=== PATIENT | female | born 1990 | race Caucasian/White ===

== ENCOUNTER 2019-06-16 11:48 | Inpatient (IN) | payer BC ==
[~2019-06-16 11:48] MED LIST: Bupivacaine 0.25% 10 ML SDV ONE
[2019-06-16] MEDS ORDERED: Nalbuphine 10 MG/1 ML Vial IVPUSH PRN (12:49)
[2019-06-16] MEDS ORDERED: Sodium Chloride 0.9% 10 ML Syringe FLUSH PRN (12:49)
[2019-06-16] MEDS ORDERED: Ondansetron 4 MG/2 ML SDV IVPUSH PRN (12:55)
[2019-06-16] MEDS ORDERED: Oxytocin/Lactated Ringers 10 UNIT/1,000 ML BAG IV SCH ×2 (13:00)
--- NOTE | 2019-06-16 13:27 | PCM.PREANE ---
Preanesthetic Assessment - Procedure Proposed Procedure: AMARI - Anesthesia/Transfusion/Family Hx Anesthesia History: Prior Anesthesia Without Reaction Family History of Anesthesia Reaction: No Transfusion History: No Prior Transfusion(s) Type of Transfusion Reactions: Reports: Unknown - Review of Systems General: No Symptoms Pulmonary: No Symptoms Cardiovascular: No Symptoms Gastrointestinal: No Symptoms Neurological: No Symptoms Other: Reports: None - Physical Assessment Vital Signs: 99% 16 73 117/71 Height: 5 ft 10 in Weight: 87.09 kg ASA Class: 2 Mental Status: Alert & Oriented x3 Airway Class: Mallampati = 1 Dentition: Reports: Normal Dentition Thyro-Mental Finger Breadths: 3 Mouth Opening Finger Breadths: 3 ROM/Head Extension: Full Lungs: Clear to Auscultation, Normal Respiratory Effort Cardiovascular: Regular Rate, Regular Rhythm - Allergies Allergies/Adverse Reactions: Allergies Allergy/AdvReac Type Severity Reaction Status Date / Time Penicillins Allergy Hives Verified 04/29/16 18:20 - Blood Blood Available: No - Acknowledgements Anesthesia Type Planned: Epidural Pt an Appropriate Candidate for the Planned Anesthesia: Yes Alternatives and Risks of Anesthesia Discussed w Pt/Guardian: Yes Pt/Guardian Understands and Agrees with Anesthesia Plan: Yes PreAnesthesia Questionnaire Cardiovascular History: Reports: None Respiratory History: Reports: None Gastrointestinal History: Reports: GERD 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: : 2 (40 WEEKS) Para: 1 - Past Surgical History HEENT Surgical History: Reports: Oral Surgery, Other (See Below) Female Surgical History: Reports: Other (See Below) (lipoma armpit) Oncologic Surgical History: Reports: Other (See Below) - History Comment History Comment: bonifacioyrtec for home meds - SUBSTANCE USE Smoking Status *Q: Never Smoker Tobacco Use Within Last Twelve Months: No Second Hand Smoke Exposure: No Days Per Week of Alcohol Use: 0 Recreational Drug Use History: No - HOME MEDS Home Medications: Home Meds Benzocaine/Menthol [Dermoplast Pain Relief [place]] 1 applic TOP ASDIRECTED PRN # 30 canister 05/02/16 [Rx] Docusate Sodium [Colace] 100 mg PO BID PRN #30 cap 05/02/16 [Rx] Ibuprofen [IJD: Ibuprofen] 600 mg PO Q4H PRN #30 tablet 05/02/16 [Rx] Vit with Ca/FA/Iron [ Plus Iron] 1 each PO DAILY tablet [Rx] Vikas Longo [Tucks] 1 pad TOP ASDIRECTED PRN #30 pad 05/02/16 [Rx] - CURRENT (IN HOUSE) MEDS Current Meds: Current Medications Lactated Ringer's (Ringers, Lactated) 1,000 mls @ 100 mls/hr IV ASDIRECTED ROBERT Oxytocin/Lactated Ringer's (Pitocin In Lr 10 Units/1,000 Ml) 10 unit in 1,000 mls @ 12 mls/hr IV TITRATE ROBERT; Protocol Oxytocin/Lactated Ringer's (Pitocin In Lr 10 Units/1,000 Ml) 10 unit in 1,000 mls @ 500 mls/hr IV .CONTINUOUS ROBERT Nalbuphine HCl (Nubain) 10 mg IVPUSH Q2H PRN PRN Reason: Pain Ondansetron HCl (Zofran) 4 mg IVPUSH Q4H PRN PRN Reason: Nausea/Vomiting Sodium Chloride (Saline Flush) 10 ml FLUSH ASDIRECTED PRN PRN Reason: Keep Vein Open
[2019-06-16] MEDS ORDERED: diphenhydrAMINE 50 MG/ML SDV IVPUSH PRN (13:28)
[2019-06-16] MEDS ORDERED: fentaNYL 100 MCG/2 ML SDV EPIDUR PRN (13:28)
[2019-06-16] MEDS ORDERED: Bupivacaine/fentaNYL/NS 100 ML Bag EPIDUR PRN (13:28)
[2019-06-16] MEDS ORDERED: ePHEDrine 50 MG/ML SDV IVPUSH PRN (13:28)
[2019-06-16] MEDS: Lactated Ringers 1,000 ML IV SCH ×3 (13:32→17:54)
--- NOTE | 2019-06-16 15:35 | PCM.LDHP ---
L&D History of Present Illness - General Date of Service: 06/16/19 Admit Problem/Dx: Patient Status Order with Admit Dx/Problem 06/16/19 12:59 Patient Status [ADT] Routine Admission Diagnosis/Problem Admission Diagnosis/Problem 06/16/19 15:25 Jaylin is a 28-year-old 2 para 1001 white female admitted for induction of labor on 06/16/2019 at 40-1/7 weeks gestational age with an CELESTINO of 06/15/2019. Source of Information: Patient History Limitations: Reports: No Limitations - History of Present Illness Introduction:: Jaylin is a 28-year-old 2 para 1001 white female admitted for induction of labor on 06/16/2019 at 40-1/7 weeks gestational age with an CELESTINO of 06/15/2019. Patient's EDC is based upon a certain last menstrual periods starting 2017 and supported by at least 5 ultrasounds done during the course of the . The procedure of induction of labor, its risks, benefits, alternatives of care including long for natural onset of labor DISCUSSED with patient. She appears understand and wishes to proceed. SUPERINTENDENT DISTRIBUTION history: 2 para 1001. CELESTINO 06/15/2019 by LMP 09/08/2018 supported by multiple ultrasounds. Patient had menarche at age 11. Cycles every 30 days. No control at time of conception. Positive hCG is on 10/07/2018. Previous delivery included the followin. Male born 04/30/2018 at 37 weeks gestational age after 28 hours of labor. 6 lbs. 13 oz. named Abraham course: Patient is a centering patient. Her [place] depression screening score on 02/16/2019 was 2/30. She is interested in epidural in labor and delivery. Group B strep screen is negative. Patient had normal 1 hour GTT documented on 04/07/2019. She declined genetic evaluation. She plans to bottlefeed. She has had a history of upper respiratory infection and UTI during the course of the . course: Patient was first seen care on 11/26/2018 at which time an initial ultrasound confirmed her dates. She was seen on a very regular basis throughout the . She is centering patient. Weight gain was from 160 191 pounds. Fundal height growth was appropriate. Her vital signs remained stable throughout the course. On last evaluation clinic her cervix was 3 cm dilated, 90% effaced, soft, midposition, -3 station. laboratory testing has included first laboratory tests showing blood to be B- with negative antibody screen. Hemoglobin was 13.9 g/dL. Platelets are 257,000. She is rubella immune. RPR is nonreactive. Hepatitis B surface antigen test was negative as was HIV assay. Her chlamydia and gonorrhea tests were both negative. Second trimester labs showed hemoglobin 12.5 g/dL. Platelets are 239,000. One-hour GTT was normal at 90. Group B strep screen was negative. Second trimester RPR done 04/06/2019 was nonreactive. Allergies: 1. Penicillinscauses hives 2. Seasonal allergies are noted. Medications: 1. Azithromycin 250 mg by mouth daily 2. Calcium 500 mg2 tabs daily 3. vitamins 1 daily 4. Zyrtec allergy 1 Capsule Daily Past Medical History: 1. History of UTI. 2. History of Vaginal Delivery 1 As Listed above. 3. Seasonal Allergies Past Surgical History: 1. Oral Surgery 2007 2. Fatty Tumor Removed from Right Arm 2014. Family History: Mother Is Alive and Well. Father Is Alive and in Good Health. One Brother Alive and Well. Maternal Grandmother Secondary from Old Age. Has History of Breast Cancer. Paternal Grandfather Secondary to Kidney Disease. Paternal Grandmother Is Alive with History of Breast Cancer. Paternal Grandfather with a History of an ME. No Bleeding, Anesthesia, Clotting , Problems Noted in the Family. Paternal Grandmother Is a Twin. First Cousin Has Set of Twins. One Cousins Are Twins. Social History: Patient Is . She Lives in [place], [place]. She Is a College Graduate. She Works [employer]. She does not use any significant loss of alcohol, drugs or tobacco. Review of systems: In general patient has no complaints. Baby has been active. Some contractions have been noted. Skin: Negative Lungs: No infectious symptoms or shortness of breath Cardiovascular: No chest pain or exercise intolerance Breasts: Changes associated with only. Patient plans to bottlefeed. GI: Negative : Changes associated with . Musculoskeletal: Negative Neurological: Negative In general the patient is well-developed, well-nourished, pleasant female of stated age in no acute distress. Skin is warm dry without lesions. HEENT, neck and back within normal limits. Lungs are clear with good breath sounds in all lung siddiqi. Cardiovascular exam shows regular and rhythm without murmurs. Breasts exam is deferred having been done at first visit and found to be normal. Abdomen is gravid with last fundal height at 39 cm. Baby in vertex presentation. Genital exam per digital exam shows cervix to be 4 cm, 80% effaced, soft, somewhat posterior, -1 station, cephalic presentation. Artificial rupture membranes is undertaken. Small amount of clear amniotic fluid is noted. Extremities and neurological exam are grossly within normal limits. - Related Data Allergies/Adverse Reactions: Allergies Allergy/AdvReac Type Severity Reaction Status Date / Time Penicillins Allergy Hives Verified 04/29/16 18:20 Home Medications: Home Meds Benzocaine/Menthol [Dermoplast Pain Relief [place]] 1 applic TOP ASDIRECTED PRN # 30 canister 05/02/16 [Rx] Docusate Sodium [Colace] 100 mg PO BID PRN #30 cap 05/02/16 [Rx] Ibuprofen [IJD: Ibuprofen] 600 mg PO Q4H PRN #30 tablet 05/02/16 [Rx] Vit with Ca/FA/Iron [ Plus Iron] 1 each PO DAILY tablet [Rx] Witch Qing [Tucks] 1 pad TOP ASDIRECTED PRN #30 pad 05/02/16 [Rx] Past Medical History - Past Health History Medical/Surgical History: Denies Medical/Surgical History Cardiovascular History: Reports: None Respiratory History: Reports: None Gastrointestinal History: Reports: GERD SUPERINTENDENT DISTRIBUTION History: Reports: - Past Surgical History HEENT Surgical History: Reports: Oral Surgery, Other (See Below) Female Surgical History: Reports: Other (See Below) (lipoma armpit) Oncologic Surgical History: Reports: Other (See Below) - History Comment History Comment: zyrtec for home meds Social & Family History - Family History Family Medical History: Noncontributory - Tobacco Use Smoking Status *Q: Never Smoker Second Hand Smoke Exposure: No - Caffeine Use Caffeine Use: Reports: None - Alcohol Use Days Per Week of Alcohol Use: 0 - Recreational Drug Use Recreational Drug Use: No H&P Review of Systems - Review of Systems: Review Of Systems: See Below L&D Exam - Exam Exam: See Below - Vital Signs Weight: 87.09 kg - Patient Data Lab Results Last 24 hrs: Laboratory Results - last 24 hr 06/16/19 Range/Units 13:20 WBC 8.31 (3.98-10.04) K/mm3 RBC 4.45 (3.98-5.22) M/mm3 Hgb 12.7 (11.2-15.7) gm/L Hct 37.9 (34.1-44.9) % MCV 85.2 (79.4-94.8) fl MCH 28.5 (25.6-32.2) pg MCHC 33.5 (32.2-35.5) g/dl RDW Std Deviation 40.1 (36.4-46.3) fL Plt Count 206 (182-369) K/mm3 MPV 11.5 (9.4-12.3) fl Neut % (Auto) 62.0 (34.0-71.1) % Lymph % (Auto) 25.5 (19.3-51.7) % Pepin % (Auto) 9.1 (4.7-12.5) % Eos % (Auto) 2.4 (0.7-5.8) Baso % (Auto) 0.6 (0.1-1.2) % Neut # (Auto) 5.15 (1.56-6.13) K/mm3 Lymph # (Auto) 2.12 (1.18-3.74) K/mm3 Pepin # (Auto) 0.76 H (0.24-0.36) K/mm3 Eos # (Auto) 0.20 (0.04-0.36) K/mm3 Baso # (Auto) 0.05 (0.01-0.08) K/mm3 Result Diagrams: 06/16/19 13:20 Problem List Initiated/Reviewed/Updated: Yes Orders Last 24hrs: Active Orders 24 hr Category Date Time Status Patient Status [ADT] Routine ADT 06/16/19 12:59 Active Activity as Tolerated [RC] PFP Care 06/16/19 12:50 Active Communication Order [RC] ASDIRECTED Care 06/16/19 12:50 Active Heart Tones [RC] ASDIRECTED Care 06/16/19 12:50 Active Non Stress Test [RC] PER UNIT ROUTINE Care 06/16/19 12:50 Active Notify Provider [RC] ASDIRECTED Care 06/16/19 13:28 Active Notify Provider [RC] PFP Care 06/16/19 12:50 Active Notify Provider [RC] PRN Care 06/16/19 12:50 Active Peripheral IV Care [RC] . DIRECTED Care 06/16/19 12:50 Active Pump Management, Intrathecal [RC] ASDIRECTED Care 06/16/19 13:00 Active Urinary Catheter Assessment [RC] ASDIRECTED Care 06/16/19 12:55 Active Vital Signs [RC] PER UNIT ROUTINE Care 06/16/19 12:50 Active Regular Diet [DIET] Diet 06/16/19 Dinner Active RAPID PLASMA REAGIN,RPR [CHEM] Routine Lab 06/16/19 13:20 Received Bupivacaine/fentaNYL/NS [fentaNYL/Bupivacaine/NS 2 MCG- Med 06/16/19 13:28 Active 0.125% 100 ML] 100 ml EPIDUR ASDIRECTED PRN Lactated Ringers [Ringers, Lactated] 1,000 ml Med 06/16/19 13:00 Active IV ASDIRECTED Nalbuphine [Nubain] Med 06/16/19 12:49 Active 10 mg IVPUSH Q2H PRN Ondansetron [Zofran] Med 06/16/19 12:55 Active 4 mg IVPUSH Q4H PRN Oxytocin/Lactated Ringers [Pitocin in LR 10 Units/1,000 Med 06/16/19 13:00 Active ML] 10 unit in 1,000 ml IV .CONTINUOUS Oxytocin/Lactated Ringers [Pitocin in LR 10 Units/1,000 Med 06/16/19 13:00 Active ML] 10 unit in 1,000 ml IV TITRATE Sodium Chloride 0.9% [Saline Flush] Med 06/16/19 12:49 Active 10 ml FLUSH ASDIRECTED PRN diphenhydrAMINE [Benadryl] Med 06/16/19 13:28 Active 25 mg IVPUSH Q6H PRN ePHEDrine [ePHEDrine sulfate] Med 06/16/19 13:28 Active 5 mg IVPUSH ASDIRECTED PRN fentaNYL [Sublimaze] Med 06/16/19 13:28 Active 100 mcg EPIDUR Q3H PRN Electronic Heart Tones Ext w TOCO [WOMSER] Oth 09/11/19 12:50 Ordered Routine Electronic Heart Tones Internal [WOMSER] Per Unit Oth 06/16/19 12:50 Ordered Routine Peripheral IV Insertion Adult [OM.PC] Routine Oth 06/16/19 12:50 Ordered Resuscitation Status Routine Resus Stat 06/16/19 12:49 Ordered Medication Orders Diphenhydramine HCl (Benadryl) 25 mg IVPUSH Q6H PRN PRN Reason: pruritis Stop: 06/16/19 23:00 Ephedrine Sulfate (Ephedrine Sulfate) 5 mg IVPUSH ASDIRECTED PRN PRN Reason: Hypotension Stop: 06/16/19 23:00 Fentanyl (Sublimaze) 100 mcg EPIDUR Q3H PRN PRN Reason: Pain Stop: 06/16/19 23:00 Fentanyl/Bupivacaine HCl (Fentanyl/Bupivacaine/Ns 2 Mcg-0.125% 100 Ml) 100 ml EPIDUR ASDIRECTED PRN PRN Reason: Pain Lactated Ringer's (Ringers, Lactated) 1,000 mls @ 100 mls/hr IV ASDIRECTED ROBERT Last Admin: 06/16/19 13:32 Dose: 100 mls/hr Oxytocin/Lactated Ringer's (Pitocin In Lr 10 Units/1,000 Ml) 10 unit in 1,000 mls @ 12 mls/hr IV TITRATE ROBERT; Protocol Last Titration: 06/16/19 14:12 Dose: 4 munits/min, 24 mls/hr Admin: 06/16/19 13:39 Dose: 2 munits/min, 12 mls/hr Oxytocin/Lactated Ringer's (Pitocin In Lr 10 Units/1,000 Ml) 10 unit in 1,000 mls @ 500 mls/hr IV .CONTINUOUS ROBERT Nalbuphine HCl (Nubain) 10 mg IVPUSH Q2H PRN PRN Reason: Pain Ondansetron HCl (Zofran) 4 mg IVPUSH Q4H PRN PRN Reason: Nausea/Vomiting Sodium Chloride (Saline Flush) 10 ml FLUSH ASDIRECTED PRN PRN Reason: Keep Vein Open Assessment/Plan Comment:: 1. 40-1/7 week intrauterine admitted for elective induction of labor. 2. Drug screen negative 3. Patient plans to do an epidural or analgesia in labor and delivery. 4. Patient plans to bottlefeed 5. T dap is up to date have been given on 04/06/2019 6. Rubella titer shows immunity Plan: 1. Artificial rupture membranes/Pitocin induction of labor. 2. Epidural when necessary per patient desire 3. Support patient's bottle feeding plan 4. Routine labor care. 5. RPR and CBC upon admission
--- NOTE | 2019-06-16 20:20 | PCM.SN ---
- Free Text/Narrative Note: Jaylin is a 28-year-old 2 para 1001 white female admitted for induction of labor on 06/16/2019 at 40-1/7 weeks gestational age with an CELESTINO of 06/15/2019. Patient's EDC is based upon a certain last menstrual periods starting 2017 and supported by at least 5 ultrasounds done during the course of the . She underwent artificial rupture membranes and Pitocin induction of labor. Patient had no recognizable amniotic fluid released during the entire labor. No meconium was noted. The patient went rapidly to complete cervical dilation by approximately 1830 hrs. She pushed for approximately an hour and 15 minutes. At this time patient was having variable decelerations prolonged lasting up to 30-40 seconds down to the 70s to 90s beat per minute heart rate range. The decision was made to assist with vacuum extraction.. The procedure, risks, benefits, alternatives of care including or continue pushing well discussed with patient. She appeared to understand. She did have a vacuum extraction delivery with her first delivery.. She gave verbal approval for it. She underwent labor epidural and was very comfortable in the course of the pushing. With one contraction the patient delivered a viable, louise, female with Apgars of 8 and 9, weight of 2760 g (8 pounds 4.6 ounces) a left occiput anterior position. The baby was delivered completely and placed on mom's abdomen. No problems were encountered. The cord was allowed to pulsate for 1-2 minutes.tIt was then clamped and cut by the baby's father. Umbilical cord had 3 blood vessels present. Cord blood was obtained. Pitocin was increased to 500 mL an hour to help facilitate uterine tone and decreased likelihood of bleeding. Patient is noted to have a second-degree laceration. This was repaired in routine fashion using 3-0 Vicryl.. Placenta delivered in a Knight presentation , appeared intact and complete and was discarded per patient desire. Estimated blood loss 100 mL. Patient plans to breast-feed. Condition: Good
[2019-06-16] MEDS ORDERED: Acetaminophen 325 MG Tab PO PRN (21:25)
[2019-06-16] MEDS: Benzocaine/Menthol 20%-0.5% Spray 56 GM Canister TOP PRN (21:59)
[2019-06-16] MEDS: Ibuprofen 600 MG Tab PO PRN (22:00)
[2019-06-16] MEDS: Docusate Sodium 100 MG Cap PO PRN (22:00)
[2019-06-16] MEDS: Witch Hazel Medicated Pads 40/Jar TOP PRN (22:00)
[2019-06-16] MEDS: Lanolin 100% Cream 7 GM Tube TOP PRN (22:01)
--- NOTE | 2019-06-17 06:47 | PCM48HPAN ---
Post Anesthesia Note - EVALUATION WITHIN 48HRS OF ANESTHETIC Vital Signs in Normal Range: Yes Patient Participated in Evaluation: Yes Respiratory Function Stable: Yes Airway Patent: Yes Cardiovascular Function Stable: Yes Hydration Status Stable: Yes Pain Control Satisfactory: Yes Nausea and Vomiting Control Satisfactory: Yes Mental Status Recovered: Yes Vital Signs: Last Vital Signs Temp 36.4 C 06/17/19 04:03 Pulse 57 L 06/17/19 04:03 Resp 14 06/17/19 04:03 BP 113/46 L 06/17/19 04:03 Pulse Ox 99 06/17/19 04:03
[2019-06-17] MEDS: Ibuprofen 600 MG Tab PO PRN ×3 (09:27→18:36)
[2019-06-17] MEDS: Lanolin 100% Cream 7 GM Tube TOP PRN (09:28)
[2019-06-17] MEDS: Witch Hazel Medicated Pads 40/Jar TOP PRN (21:09)
[2019-06-17] MEDS: Benzocaine/Menthol 20%-0.5% Spray 56 GM Canister TOP PRN (21:09)
[2019-06-18] MEDS: Ibuprofen 600 MG Tab PO PRN (02:03)
--- NOTE | 2019-06-18 05:19 | PCM.DCSUM1 ---
Discharge Summary - Hospital Course Free Text/Narrative:: a 28-year-old 2 para 1001 white female admitted for induction of labor on 06/16/2019 at 40-1/7 weeks gestational age with an CELESTINO of 06/15/2019. Patient' s EDC is based upon a certain last menstrual periods starting 09/12/2018 and supported by at least 5 ultrasounds done during the course of the . She underwent artificial rupture membranes and Pitocin induction of labor. Patient had no recognizable amniotic fluid released during the entire labor. No meconium was noted. The patient went rapidly to complete cervical dilation by approximately 1830 hrs. She pushed for approximately an hour and 15 minutes. At this time patient was having variable decelerations prolonged lasting up to 30-40 seconds down to the 70s to 90s beat per minute heart rate range. The decision was made to assist with vacuum extraction.. The procedure, risks, benefits, alternatives of care including or continue pushing well discussed with patient. She appeared to understand. She did have a vacuum extraction delivery with her first delivery.. She gave verbal approval for it. She underwent labor epidural and was very comfortable in the course of the pushing. With one contraction the patient delivered a viable, louise, female with Apgars of 8 and 9, weight of 2760 g (8 pounds 4.6 ounces) a left occiput anterior position. The baby was delivered completely and placed on mom's abdomen. No problems were encountered. The cord was allowed to pulsate for 1-2 minutes.tIt was then clamped and cut by the baby's father. Umbilical cord had 3 blood vessels present. Cord blood was obtained. Pitocin was increased to 500 mL an hour to help facilitate uterine tone and decreased likelihood of bleeding. Patient is noted to have a second-degree laceration. This was repaired in routine fashion using 3-0 Vicryl.. Placenta delivered in a Knight presentation , appeared intact and complete and was discarded per patient desire. Estimated blood loss 100 mL. Patient plans to breast-feed. patient is doing well. She is voiding well, ambulated without problems has minimal lochia. She is nursing without concerns. Patient is desiring discharge home. Her vital signs and stable and she has been afebrile. She is met with a consultatant. Condition: Good Diagnosis: Stroke: No - Discharge Data Discharge Date: 06/18/19 Discharge Disposition: Home, Self-Care 01 Condition: Good - Referral to Home Health Primary Care Physician: Chetan Donohue MD - Patient Instructions Diet: Regular Diet as Tolerated (Nursing diet with increase calories and calcium as recommended) Activity: As Tolerated (No intercourse or tampons until bleeding resolves) Driving: May Drive Today Showering/Bathing: May Shower (may take a bath) Notify Provider of: Fever, Increased Pain, Swelling and Redness, Nausea and/or Vomiting - Discharge Plan Home Medications: Home Meds Benzocaine/Menthol [Dermoplast Pain Relief [place]] 1 applic TOP ASDIRECTED PRN # 30 canister 05/02/16 [Rx] Docusate Sodium [Colace] 100 mg PO BID PRN #30 cap 05/02/16 [Rx] Vit with Ca/FA/Iron [ Plus Iron] 1 each PO DAILY tablet [Rx] Vikas Qing [Tucks] 1 pad TOP ASDIRECTED PRN #30 pad 05/02/16 [Rx] Acetaminophen [Tylenol] 650 mg PO Q4H PRN tablet 06/18/19 [Rx] Ibuprofen [Motrin] 600 mg PO Q4H PRN tablet 06/18/19 [Rx] Patient Handouts: and Self-Care, and Returning to Work, Vaginal Delivery, Care After Referrals: Chetan Donohue MD [Primary Care Provider] - (Return to clinicDr. Donohue2 weeks.) - Discharge Summary/Plan Comment DC Time >30 min.: No Discharge Summary/Plan Comment: Discharge instructions: 1. Discharge home 2. Diet, activity and follow-up discussed with patient. Recommend nursing diet with increased calories and calcium. 3. Precautions given concern increased pain, bleeding, temperature, signs/ symptoms of DVT/PE. 4. Medications per home medication was printed, discussed with and given to the patient. 5. Return to clinic-Dr. Donohue-[facility] in 2 weeks. Diagnosis: Term -delivered Condition: Good - Patient Data Vitals - Most Recent: Last Vital Signs Temp 36.8 C 06/18/19 03:59 Pulse 56 L 06/18/19 03:59 Resp 16 06/18/19 03:59 BP 107/62 06/18/19 03:59 Pulse Ox 99 06/18/19 03:59 Weight - Most Recent: 87.09 kg Med Orders - Current: Current Medications Acetaminophen (Tylenol) 650 mg PO Q4H PRN PRN Reason: mild pain or fever Benzocaine/Menthol (Dermoplast Pain Relief [place]) 0 gm TOP ASDIRECTED PRN PRN Reason: Perineal Comfort Measure Last Admin: 06/17/19 21:09 Dose: 1 can Docusate Sodium (Colace) 100 mg PO BID PRN PRN Reason: Constipation Last Admin: 06/16/19 22:00 Dose: 100 mg Emollient Ointment (Lansinoh Hpa) 0 gm TOP ASDIRECTED PRN PRN Reason: Sore Nipples Last Admin: 06/17/19 09:28 Dose: 1 applic Ibuprofen (Motrin) 600 mg PO Q4H PRN PRN Reason: Mild pain or fever Last Admin: 06/18/19 02:03 Dose: 600 mg Witch Qing (Tucks) 1 pad TOP ASDIRECTED PRN PRN Reason: Pain Last Admin: 06/17/19 21:09 Dose: 1 can Discontinued Medications Bupivacaine HCl (Sensorcaine-Mpf 0.25%) 10 ml .ROUTE .STK-MED ONE Stop: 06/16/19 00:01 Diphenhydramine HCl (Benadryl) 25 mg IVPUSH Q6H PRN PRN Reason: pruritis Stop: 06/16/19 23:00 Ephedrine Sulfate (Ephedrine Sulfate) 5 mg IVPUSH ASDIRECTED PRN PRN Reason: Hypotension Stop: 06/16/19 23:00 Last Admin: 06/16/19 16:56 Dose: 5 mg Fentanyl (Sublimaze) 100 mcg EPIDUR Q3H PRN PRN Reason: Pain Stop: 06/16/19 23:00 Last Admin: 06/16/19 16:09 Dose: 100 mcg Fentanyl/Bupivacaine HCl (Fentanyl/Bupivacaine/Ns 2 Mcg-0.125% 100 Ml) 100 ml EPIDUR ASDIRECTED PRN PRN Reason: Pain Last Admin: 06/16/19 16:09 Dose: 100 ml Lactated Ringer's (Ringers, Lactated) 1,000 mls @ 100 mls/hr IV ASDIRECTED ROBERT Last Admin: 06/16/19 17:54 Dose: 100 mls/hr Oxytocin/Lactated Ringer's (Pitocin In Lr 10 Units/1,000 Ml) 10 unit in 1,000 mls @ 12 mls/hr IV TITRATE ROBERT; Protocol Last Titration: 06/16/19 16:45 Dose: 2 munits/min, 12 mls/hr Oxytocin/Lactated Ringer's (Pitocin In Lr 10 Units/1,000 Ml) 10 unit in 1,000 mls @ 500 mls/hr IV .CONTINUOUS ROBERT Nalbuphine HCl (Nubain) 10 mg IVPUSH Q2H PRN PRN Reason: Pain Ondansetron HCl (Zofran) 4 mg IVPUSH Q4H PRN PRN Reason: Nausea/Vomiting Sodium Chloride (Saline Flush) 10 ml FLUSH ASDIRECTED PRN PRN Reason: Keep Vein Open
[2019-06-18] MEDS: Docusate Sodium 100 MG Cap PO PRN (08:33)
[2019-06-18 11:18] VITALS: BP 120/63; PULSE 59
== END 2019-06-18 11:22 | disposition home or self-care (01) | DRG 560 ==
LOC: JD.OB 11:48 → OBSVTOIN 19:45 → JD.OB 19:46
PROVIDERS: ADMIT Obstetrics & Gynecology; ATTEND Obstetrics & Gynecology
PROC: 10E0XZZ Delivery of Products of Conception, External Approach (ICD-10-PCS; principal; 2019-06-16)
PROC: 10907ZC Drainage of Amniotic Fluid, Therapeutic from Products of Conception, Via Natural or Artificial Opening (ICD-10-PCS; 2019-06-16)
PROC: 3E033VJ Introduction of Other Hormone into Peripheral Vein, Percutaneous Approach (ICD-10-PCS; 2019-06-16)
PROC: 0HQ9XZZ Repair Perineum Skin, External Approach (ICD-10-PCS; 2019-06-16)
DX: O48.0 Post-term pregnancy (principal); O76 Abnormality in fetal heart rate and rhythm complicating labor and delivery; Z3A.40 40 weeks gestation of pregnancy; Z37.0 Single live birth; O70.1 Second degree perineal laceration during delivery
CPT/HCPCS: 01967; 36415; 51702; 59025; 59409; 85025; 86592; A9270-GY; J2590; J3010; J3490; J7120